=== PATIENT | female | born 1980 | race Caucasian/White ===

== ENCOUNTER → 2017-05-17 | Outpatient (CLI) | payer OTHER | LOC: RAD 09:17 | DX: M54.5 Low back pain (principal) ==

== ENCOUNTER → 2020-09-02 | Outpatient (CLI) | payer OTHER | LOC: MRI 08:45 | PROVIDERS: ATTEND Neuromusculoskeletal Medicine & OMM | DX: M51.17 Intervertebral disc disorders with radiculopathy, lumbosacral region (principal) ==